=== PATIENT | male | born 2005 | race Caucasian/White ===

== ENCOUNTER 2024-06-11 17:20 | Emergency (ER) | payer BC ==
[2024-06-11] MEDS ORDERED: Methocarbamol 500 MG TAB ONE (17:41)
[2024-06-11] MEDS ORDERED: Ibuprofen 200 MG TAB ONE (17:41)
[2024-06-11] MEDS ORDERED: Lidocaine 4% Patch ONE (17:59)
[2024-06-11] MEDS ORDERED: Lidocaine 4% Patch TD SCH (18:00)
== END 2024-06-11 18:11 | disposition home or self-care (01) ==
LOC: CSHERS 17:20
DX: S39.012A Strain of muscle, fascia and tendon of lower back, initial encounter (principal); X58.XXXA Exposure to other specified factors, initial encounter
CPT/HCPCS: 99283